=== PATIENT | male | born 1955 | race Hispanic/Latino ===

== ENCOUNTER 2021-11-08 17:38 | Emergency (ER) | payer BC ==
[2021-11-08] MEDS ORDERED: ONDANSETRON 4 MG/2 ML VIAL ONE (18:50)
[2021-11-08 18:57] LABS: Absolute Lymphocytes (CBC) 1.9 K/uL (0.7-4.9); Hematocrit 45.8 % (39.6-49.0); MPV 7.6 fL (7.6-11.3); RBC Red Blood Cell Count 5.21 M/uL (4.33-5.43)
[2021-11-08 19:17] LABS: Albumin 3.5 g/dL (3.4-5.0); Bilirubin Total 0.4 mg/dL (0.2-1.0); Protein, Total 6.8 g/dL (6.4-8.2)
--- NOTE | 2021-11-08 19:22 | RAD REPORT ---
EXAM DESCRIPTION: CT - Stone Protocol - 11/08/2021 6:56 pm CLINICAL HISTORY: right flank pain COMPARISON: <Comparisons> TECHNIQUE: Axial 3 mm thick images were obtained without oral or IV contrast. The [id number] span s the entirety of the system including uppermost abdomen and lung bases. All CT scans are performed using dose optimization technique as appropriate and may include automated exposure control or mA/KV adjustment according to patient size. FINDINGS: No hydronephrosis is present and no obstructing ureteral calculi. 1-2 mm sized calculi are seen lower pole right kidney. No suspicious renal masses. Isodense masses and pyelonephritis are not excluded on a stone protocol CT scan. No significant adrenal finding. No urinary bladder suspicious finding. Imaged portions of the liver, spleen and pancreas show no suspicious findings on non-contrast imaging . No gallbladder or biliary tree abnormality identified. No suspicious bowel findings. No mass or bulky lymphadenopathy. Fat extends into the left inguinal canal. Periumbilical fat only he rnia present. No free air, free fluid or inflammatory stranding. No significant bony abnormality. IMPRESSION: No hydronephrosis, obstructing calculus or acute finding identifiable. Isodense masses and pyelonephritis are not excluded on stone protocol technique.
[2021-11-08] MEDS ORDERED: FENTANYL CITR 100 MCG/2 ML ONE (19:52)
[2021-11-08] MEDS ORDERED: KETOROLAC 30 MG/ML INJ ONE (20:12)
[2021-11-08] MEDS ORDERED: LIDOCAINE 4% PATCH ONE (20:12)
--- NOTE | 2021-11-08 20:12 | EDPHYS ---
Physician Documentation [facility] Name: John Parra Age: 66 yrs Sex: Male : 1955 Arrival Date: 11/08/2021 Time: 17:40 Bed 10 Private MD: ED Physician Froy Jackson HPI: 11/08 18:30 This 66 yrs old Male presents to ER via Ambulatory with complaints of Flank cp Pain. 18:30 The patient complains of pain in the right flank. The pain does not radiate. Onset: The cp symptoms/episode began/occurred 2 day(s) ago. Modifying factors: the symptoms are aggravated by movement, palpation/percussion. Associated signs and symptoms: The patient has no apparent associated signs or symptoms. Severity of pain: in the emergency department the pain is unchanged despite home interventions. Historical: - Allergies: 18:04 No Known Allergies; aa5 - PMHx: 18:04 Hypertensive disorder; Diabetes mellitus; thyroid problems; aa5 - PSHx: 18:04 None; aa5 - Immunization history:: Adult Immunizations unknown. - Social history:: Smoking status: Patient reports the use of cigarette tobacco products, smokes one-half pack cigarettes per day. ROS: 18:35 Constitutional: Negative for body aches, chills, fever, poor PO intake. cp 18:35 Eyes: Negative for injury, pain, redness, and discharge. cp 18:35 ENT: Negative for drainage from ear(s), ear pain, sore throat, difficulty swallowing, difficulty handling secretions. 18:35 Cardiovascular: Negative for chest pain, edema, palpitations. 18:35 Respiratory: Negative for cough, shortness of breath, wheezing. 18:35 Abdomen/GI: Negative for vomiting, diarrhea, constipation. 18:35 Back: Positive for flank pain, on the right, Negative for injury or acute deformity, decreased range of motion. 18:35 : Negative for urinary symptoms, testicular pain 18:35 Skin: Negative for cellulitis, rash. 18:35 Neuro: Negative for altered mental status, headache, weakness. 18:35 All other systems are negative. Exam: 18:40 Constitutional: The patient appears in no acute distress, alert, awake, cp non-diaphoretic, non-toxic, well developed, well nourished. 18:40 Head/Face: Normocephalic, atraumatic. cp 18:40 Eyes: Periorbital structures: appear normal, Conjunctiva: normal, no exudate, no injection, Sclera: no appreciated abnormality, Lids and lashes: appear normal, bilaterally. 18:40 ENT: External ear(s): are unremarkable, Nose: is normal, Mouth: Lips: moist, Oral mucosa: moist, Posterior pharynx: Airway: no evidence of obstruction, patent. 18:40 Neck: ROM/movement: is normal, is supple, without pain, no range of motions limitations, no nuchal rigidity. 18:40 Chest/axilla: Inspection: normal, Palpation: crepitus, is not appreciated, tenderness, that is moderate, of the right lower lateral chest. 18:40 Cardiovascular: Rate: normal, Edema: is not appreciated, JVD: is not appreciated. 18:40 Respiratory: the patient does not display signs of respiratory distress, Respirations: normal, no use of accessory muscles, no retractions, labored breathing, is not present, Breath sounds: are clear throughout, no decreased breath sounds, no stridor, no wheezing. 18:40 Abdomen/GI: Inspection: obese Bowel sounds: active, all quadrants, Palpation: abdomen is soft and non-tender, in all quadrants. 18:40 Back: CVA tenderness, is absent, vertebral tenderness, is not appreciated. 18:40 Skin: cellulitis, is not appreciated, no rash present. 18:40 Neuro: Orientation: to person, place \T\ time. Mentation: is normal, Motor: moves all fours, strength is normal, Sensation: is normal. Vital Signs: 18:05 BP 154 / 92; Pulse 58; Resp 16 S; Temp 97.8(TE); Pulse Ox 100% on R/A; aa5 19:39 BP 136 / 90; Pulse 53; Resp 18; Pulse Ox 99% on R/A; Pain 8/10; ld1 20:20 BP 132 / 89; Pulse 55; Resp 18; Pulse Ox 98% on R/A; Pain 4/10; ld1 MDM: 18:18 Patient medically screened. cp 20:07 ED course: Patient reports similar pain in the past when diagnosed with shingles. Would cp like to start antivirals. 20:12 Data reviewed: vital signs, nurses notes, lab test result(s), radiologic studies, CT cp scan. 20:12 Counseling: I had a detailed discussion with the patient and/or guardian regarding: the cp historical points, exam findings, and any diagnostic results supporting the discharge/admit diagnosis, lab results, radiology results, the need for outpatient follow up, a family practitioner, to return to the emergency department if symptoms worsen or persist or if there are any questions or concerns that arise at home. Response to treatment: the patient's symptoms have mildly improved after treatment, and as a result, I will discharge patient. 11/08 18:23 Order name: CBC with Diff; Complete Time: 19:56 11/08 19:56 Interpretation: Reviewed. 11/08 18:23 Order name: CMP; Complete Time: 19:56 cp 11/08 19:56 Interpretation: Normal except: CL 108; GLUC 147. 11/08 18:23 Order name: Lipase; Complete Time: 19:56 11/08 18:23 Order name: Urine Microscopic Only 11/08 18:23 Order name: CT Stone Protocol; Complete Time: 19:56 11/08 19:57 Interpretation: Report reviewed. 11/08 20:23 Order name: Urine Dipstick-Ancillary EDCT 11/08 18:23 Order name: IV Saline Lock; Complete Time: 18:52 cp 11/08 18:23 Order name: Labs collected and sent; Complete Time: 18:52 11/08 18:23 Order name: Urine Dipstick-Ancillary (obtain specimen); Complete Time: 20:25 cp Administered Medications: 18:52 Not Given (Patient Refused): Zofran (Ondansetron) 4 mg IVP once; over 2 minutes kb3 19:35 CANCELLED (Physician Discretion): Ketorolac 15 mg IVP once cp 19:47 Drug: fentaNYL (PF) 25 mcg Route: IVP; Site: right antecubital; ld1 19:47 Follow up: Response: No adverse reaction ld1 20:19 Drug: Lidoderm Patch 5 % (700 mg/patch) 1 patches Route: Topical; Site: affected area; ld1 20:19 Follow up: Response: No adverse reaction ld1 20:19 Follow up: Response: No adverse reaction ld1 20:19 Drug: Ketorolac 15 mg Route: IVP; Site: right antecubital; ld1 20:19 Follow up: Response: No adverse reaction ld1 Disposition Summary: 11/08/21 20:12 Discharge Ordered Location: Home cp Problem: new cp Symptoms: have improved cp Condition: Stable cp Diagnosis - Chest pain, unspecified - right lower lateral chest cp Followup: cp - With: Private Physician - When: 2 - 3 days - Reason: Recheck today's complaints Discharge Instructions: - Discharge Summary Sheet cp - Musculoskeletal Pain cp Forms: - Medication Reconciliation Form cp - Thank You Letter cp - Antibiotic Education cp - Prescription Opioid Use cp Prescriptions: - capsaicin 0.075 % Topical cream - apply 1 application by TOPICAL route 4 times per day; 45 gram; Refills: 0, cp Product Selection Permitted - Cyclobenzaprine 10 mg Oral Tablet - take 1 tablet by ORAL route every 8 hours As needed; 20 tablet; Refills: 0, cp Product Selection Permitted - Acyclovir 800 mg Oral Tablet - take 1 tablet by ORAL route 5 times per day for 10 days; 50 tablet; Refills: 0, cp Product Selection Permitted - Diclofenac Sodium 75 mg Oral tablet,delayed release (DR/EC) - take 1 tablet by ORAL route 2 times per day; 20 tablet; Refills: 0, Product cp Selection Permitted Addendum: 11/10/2021 23:59 Co-signature as Attending Physician, Froy Jackson MD I was immediately available on-site r n in the Emergency Department for consultation in the care of the patient.. Signatures: Dispatcher [employer] EDFroy Mir MD MD rn Calderon, Audri, RN RN aa5 Ravi Sotelo PA PA cp Caryl Mena RN RN ld1 Linda Doshi RN kb3 Corrections: (The following items were deleted from the chart) 11/08 19:35 19:35 Ketorolac 15 mg IVP once ordered. cp cp
--- NOTE | 2021-11-08 20:12 | ER ---
Nurse's Notes [facility] Name: John Parra Age: 66 yrs Sex: Male : 1955 Arrival Date: 11/08/2021 Time: 17:40 Bed 10 Private MD: Diagnosis: Chest pain, unspecified-right lower lateral chest Presentation: 11/08 18:05 Chief complaint: Patient states: right flank pain x 1 week ago. Denies aa5 nausea/vomiting/diarrhea, denies urinary symptoms. Coronavirus screen: At this time, the client does not indicate any symptoms associated with coronavirus-19. Ebola Screen: Patient denies travel to an Ebola-affected area in the 21 days before illness onset. Initial Sepsis Screen: Does the patient meet any 2 criteria? No. Patient's initial sepsis screen is negative. Does the patient have a suspected source of infection? No. Patient's initial sepsis screen is negative. Risk Assessment: Do you want to hurt yourself or someone else? Patient reports no desire to harm self or others. Onset of symptoms was October 2021. 18:05 Method Of Arrival: Ambulatory aa5 18:05 Acuity: DIONISIO 3 aa5 Historical: - Allergies: 18:04 No Known Allergies; aa5 - PMHx: 18:04 Hypertensive disorder; Diabetes mellitus; thyroid problems; aa5 - PSHx: 18:04 None; aa5 - Immunization history:: Adult Immunizations unknown. - Social history:: Smoking status: Patient reports the use of cigarette tobacco products, smokes one-half pack cigarettes per day. Screenin:39 Abuse screen: Denies threats or abuse. Denies injuries from another. Nutritional ld1 screening: No deficits noted. Tuberculosis screening: No symptoms or risk factors identified. Fall Risk None identified. Assessment: 19:39 General: Appears in no apparent distress. uncomfortable, Behavior is calm, cooperative, ld1 appropriate for age. Pain: Complains of pain in anterior aspect of right lateral abdomen Pain does not radiate. Pain currently is 8 out of 10 on a pain scale. Quality of pain is described as throbbing, Pain began suddenly. Neuro: Level of Consciousness is awake, alert, obeys commands, Oriented to person, place, time, situation. Cardiovascular: Capillary refill < 3 seconds Patient's skin is warm and dry. Respiratory: Airway is patent Respiratory effort is even, unlabored. GI: Abdomen is flat, non-distended. : No signs and/or symptoms were reported regarding the genitourinary system. EENT: No signs and/or symptoms were reported regarding the EENT system. Derm: No signs and/or symptoms reported regarding the dermatologic system. Musculoskeletal: No signs and/or symptoms reported regarding the musculoskeletal system. 20:20 Reassessment: Patient appears in no apparent distress at this time. Patient and/or ld1 family updated on plan of care and expected duration. Pain level reassessed. Vital Signs: 18:05 BP 154 / 92; Pulse 58; Resp 16 S; Temp 97.8(TE); Pulse Ox 100% on R/A; aa5 19:39 BP 136 / 90; Pulse 53; Resp 18; Pulse Ox 99% on R/A; Pain 8/10; ld1 20:20 BP 132 / 89; Pulse 55; Resp 18; Pulse Ox 98% on R/A; Pain 4/10; ld1 ED Course: 17:40 Patient arrived in ED. am2 17:42 Ravi Sotelo PA is PHCP. cp 17:42 Froy Jackson MD is Attending Physician. cp 18:03 Arm band placed on. aa5 18:06 Triage completed. aa5 18:30 Linda Doshi, RN is Primary Nurse. kb3 18:[address] kb3 18:52 Inserted saline lock: 20 gauge in right antecubital area, using aseptic technique. kb3 Blood collected. 18:58 CT Stone Protocol In Process Unspecified. EDMS 19:39 Patient has correct armband on for positive identification. Placed in gown. Bed in low ld1 position. Call light in reach. Side rails up X2. traffic monitor specialist on. Pulse ox on. NIBP on. Door closed. Noise minimized. Warm blanket given. 19:39 No provider procedures requiring assistance completed. ld1 Administered Medications: 18:52 Not Given (Patient Refused): Zofran (Ondansetron) 4 mg IVP once; over 2 minutes kb3 19:35 CANCELLED (Physician Discretion): Ketorolac 15 mg IVP once cp 19:47 Drug: fentaNYL (PF) 25 mcg Route: IVP; Site: right antecubital; ld1 19:47 Follow up: Response: No adverse reaction ld1 20:19 Drug: Lidoderm Patch 5 % (700 mg/patch) 1 patches Route: Topical; Site: affected area; ld1 20:19 Follow up: Response: No adverse reaction ld1 20:19 Follow up: Response: No adverse reaction ld1 20:19 Drug: Ketorolac 15 mg Route: IVP; Site: right antecubital; ld1 20:19 Follow up: Response: No adverse reaction ld1 Medication: 19:39 VIS not applicable for this client. ld1 Outcome: 20:12 Discharge ordered by MD. ochoa 20:20 Condition: stable ld1 20:59 Patient left the ED. mw2 Signatures: Dispatcher [employer] EDMS Sandra Servin RN RN aa5 Ravi Sotelo PA PA cp Moreno, Amanda am2 Son Diana mw2 Caryl Mena RN RN ld1 Linda Doshi RN RN kb3
[2021-11-08 20:22] LABS: Urine Blood Negative (Negative); Urine Glucose Negative (Negative); Urine Protein Negative (Negative); Urine Specific Gravity >=1.030 (1.005-1.030)
[2021-11-08 20:44] LABS: Urine Bacteria <20 /HPF (<20); Urine RBC <5 /HPF (None Seen)
[2021-11-08 22:08] VITALS: TEMP 97.8
[2021-11-08 22:20] VITALS: BP 132/89; O2SAT 98
== END 2021-11-08 20:59 | disposition home or self-care (01) ==
LOC: ER 17:38
DX: R07.89 Other chest pain (principal); E11.9 Type 2 diabetes mellitus without complications; I10 Essential (primary) hypertension; F17.210 Nicotine dependence, cigarettes, uncomplicated
CPT/HCPCS: 85025; 36415; 83690; 80053; 76377; 74176; J3010; J2001; J2405; 81003; 81015; 96374; 96375; 99285

== ENCOUNTER 2023-01-06 08:37 | Day surgery (SDC) | payer BC, OTHER ==
[2023-01-02 13:13] LABS: Potassium 3.8 mEq/L (3.5-5.1)
--- NOTE | 2023-01-03 11:57 | EKG ---
Test Date: 2023-01-02 Test Time: 12:41:22 Harp Repairer: JOHNATHON MEASUREMENT RESULTS: Intervals: Rate: 60 TX: 182 QRSD: 118 QT: 388 QTc: 388 [place]: P: 44 TX: 182 QRS: -30 T: 51 INTERPRETIVE STATEMENTS: Normal sinus rhythm Left axis deviation Nonspecific intraventricular conduction delay Abnormal ECG Compared to ECG 12/07/2004 13:58:00 Left-axis deviation now present Intraventricular conduction delay now present Electronically Signed On 01-03-23 11:54:21 CDT by Dharmesh Haider
[2023-01-06] MEDS ORDERED: OXYMETAZOLINE HCL 0.05% 15ML NAS ONE ×2 (09:01→11:30)
[2023-01-06] MEDS ORDERED: NA CHLORIDE 0.9% 1,000 ML ONE (09:01)
[2023-01-06] MEDS ORDERED: FENTANYL CITR 100 MCG/2 ML ONE (10:44)
[2023-01-06] MEDS ORDERED: MIDAZOLAM HCL 2 MG/2 ML INJ ONE (10:44)
[2023-01-06] MEDS ORDERED: propofoL 200 MG/20 ML VIAL IV ONE (10:44)
[2023-01-06] MEDS ORDERED: LIDOCAINE 2% MPF 5 ML VIAL ONE (10:45)
[2023-01-06] MEDS ORDERED: ONDANSETRON 4 MG/2 ML VIAL ONE (10:45)
[2023-01-06] MEDS ORDERED: OFLOXACIN OPH 0.3%-5 ML BTL ONE (11:30)
--- NOTE | 2023-01-06 12:09 | P.OP ---
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 Cerumen was removed using a wire loop. The eardrum was examined and was very mildly retracted with a serous, light bre appearing middle ear fluid. A radial incision was made in the anterior-inferior quadrant and serous fluid was suctioned from the middle ear space. An alligator was used to position a Paparella type I tube across the incision. Bleeding was minimal The head of bed was turned 90 degrees. The 0 degree endoscope was used to perform a nasopharyngoscopy and nasal endoscopy. The nasal mucosa was somewhat pale and edematous with clear mucoid fluid and cobblestoning of the nasal mucosa. The nasopharynx was free from any significant ulcer or abnormal ap pearing tissue. There was a minimal amount of adenoid tissue and the nasopharynx in general had edematous appearing mucosa with complete occlusion of the right eustachian tube. The left eustachian tube appeared patent. Photodocumentation was obtained. The Acclarent balloon was passed under 30 degree rigid endoscopic guidance through the right nasal cavity. The tip was positioned at the superior aspect of the right eustachian tube opening and the balloon was carefully advanced into the eustachian tube. These eustachian tube was somewhat shortened and the balloon could only be advanced approximately 70% into the lumen. The balloon was then slowly inflated to 2 berta. There was no significant watermelon, bleeding, or other immediate complications noted and the pressure was increased to 8 berta of pressure. This was held for a total of 2 minutes. The balloon was then deflated and the balloon carefully withdrawn. There was very scant blood at the eustachian tube opening but no evidence of significant mucosal injury or other bleeding. The procedure was concluded and the patient was returned to care of anesthesia for awakening extubation in the operating room which proceeded without difficulty. Patient was brought to the recovery room in stable condition. Complications: None Implants: Paparella type I, right Fluids & blood products: See anesthesia record Transferred to: Recovery Room Condition: Good
[2023-01-06 13:28] VITALS: BP 113/67; TEMP 97.8; O2SAT 93
== END 2023-01-06 13:30 | disposition home or self-care (01) ==
LOC: OR 08:37
PROVIDERS: ATTEND Otolaryngology
PROC: 097F8ZZ Dilation of Right Eustachian Tube, Via Natural or Artificial Opening Endoscopic (ICD-10-PCS; 2023-01-06)
PROC: 099570Z Drainage of Right Middle Ear with Drainage Device, Via Natural or Artificial Opening (ICD-10-PCS; principal; 2023-01-06 09:45)
DX: H65.21 Chronic serous otitis media, right ear (principal); H90.A31 Mixed conductive and sensorineural hearing loss, unilateral, right ear with restricted hearing on the contralateral side; H68.021 Chronic Eustachian salpingitis, right ear; J31.0 Chronic rhinitis; E66.3 Overweight; Z72.0 Tobacco use
CPT/HCPCS: 93005; 80048; 36415; 82947; 69436; 69705; J2704; J2001; J2250; J3010; J2405; J7030

== ENCOUNTER 2024-10-22 12:05 | Emergency (ER) | payer MEDICAID ==
--- NOTE | 2024-10-22 14:35 | RAD REPORT ---
EXAMINATION: ONE VIEW CHEST XR CLINICAL INDICATION: Male, 69 years old.,CHEST PAIN TECHNIQUE: Frontal chest projection is submitted. Examination is limited by patient positioning and t echnique. COMPARISON: 10/21/2021 CT chest FINDINGS: The lungs are well inflated and clear. No pneumothorax or sizable effusion. The heart is normal in s ize. Mediastinal contours are unremarkable. IMPRESSION: No acute intrathoracic abnormalities.
--- NOTE | 2024-10-22 14:37 | RAD REPORT ---
EXAM: CT Head Brain Wo Cont HISTORY: DIZZINESS COMPARISON: None TECHNIQUE: Multiple contiguous axial images were obtained for a CT of the brain without contrast. Sag ittal and coronal reformats were performed. One or more of the following dose reduction techniques were used: Automated exposure control, adjus tment of the mA and kV according to patient size, and iterative reconstruction. Unless otherwise specified, incidental findings do not require dedicated imaging follow-up. FINDINGS: No evidence of hydrocephalus, intracranial hemorrhage, or extra-axial fluid collection. The brain is normal in morphology. The calvarium is intact. The visualized paranasal sinuses and mastoid air cells are essentially clear . IMPRESSION: No evidence of acute intracranial abnormality.
[2024-10-22] MEDS ORDERED: NA CHLORIDE 0.9% 1,000 ML ONE (14:42)
[2024-10-22 14:51] LABS: Absolute Lymphocytes (CBC) 1.8 K/uL (0.7-4.9); Hematocrit 44.3 % (39.6-49.0); Hemoglobin 14.8 g/dL (13.6-17.9); MCH 29.0 pg (27.0-35.0); MCHC 33.3 g/dL (32.0-36.0); MCV 87.0 fL (80-100); MPV 7.5 fL (7.6-11.3); Nucleated RBC Absolute Count 0.0 (0-0); Nucleated Red Blood Cells % 0.0 % (0-0); RBC Red Blood Cell Count 5.10 M/uL (4.33-5.43); White Blood Count 6.40 thou/uL (4.3-10.9)
[2024-10-22 14:59] LABS: PT Prothrombin Time 11.9 SECONDS (10-13.0); PTT, Activated Partial Thromb 33.0 SECONDS (27.2-37.4); Protime INR 1.05
[2024-10-22 15:08] LABS: ALT/SGPT 37 U/L (16-61); AST/SGOT 14 U/L (15-37); Albumin 3.6 g/dL (3.4-5.0); Albumin/Globulin Ratio 1.0 (1.1-1.8); Alkaline Phosphatase 94 U/L (45-117); Anion Gap 7.7 mEq/L (5.0-15.0); BUN Blood Urea Nitrogen 19 mg/dL (7-18); Globulin 3.6 g/dL (2.3-3.5); Glucose Level 173 mg/dL (74-106); Magnesium 2.0 mg/dL (1.6-2.4); Potassium 3.7 mEq/L (3.5-5.1); Troponin High Sensitivity 4.3 pg/mL (<58.9)
[2024-10-22 15:09] LABS: Bilirubin Indirect, Calculated 0.3 mg/dL (0.2-0.8)
[2024-10-22] MEDS ORDERED: MECLIZINE HCL 12.5 MG TAB ONE ×2 (16:14→16:18)
--- NOTE | 2024-10-22 16:59 | EDPHYS ---
Physician Documentation [facility] Name: John Parra Age: 69 yrs Sex: Male : 1955 Arrival Date: 10/22/2024 Time: 12:05 Bed 24 Private MD: ED Physician Justine Bradley HPI: 10/22 16:26 This 69 yrs old Male presents to ER via Wheelchair with complaints of sb4 dizziness. 16:26 Patient states that he was playing with his granddaughter this morning, brushing got sb4 very dizzy and nauseated. He states he felt like he was going to pass out, but was able to sit himself down. He vomited shortly after. He almost called an ambulance but his arrived shortly after to bring him to the ED. He states that his symptoms have somewhat improved but are still there. He denies any chest pain or shortness of breath. States that he feels dizzy when he moves his head certain directions or gets up too quickly. Historical: - Allergies: 12:55 No Known Allergies; hb - PMHx: 12:55 diabetes mellitus; Hypertensive disorder; thyroid problems; hb ROS: 16:26 Constitutional: Negative for fever, chills, and weight loss, sb4 16:26 Abdomen/GI: Positive for nausea and vomiting, 16:26 Neuro: Positive for dizziness, 16:26 All other systems are negative, Exam: 16:26 Head/Face: Normocephalic, atraumatic. Eyes: Extra-ocular motions intact. Periorbital sb4 areas with no swelling, redness, or edema. ENT: Mucous membranes moist. Cardiovascular: Regular rate and rhythm with a normal S1 and S2. Respiratory: No increased work of breathing, no retractions or nasal flaring. Abdomen/GI: Soft, non-tender, no distension. Skin: Warm, dry with normal turgor. Normal color with no rashes, no lesions, and no evidence of cellulitis. MS/ Extremity: Pulses equal, no cyanosis. Neurovascular intact. Full, normal range of motion. Neuro: Awake and alert, GCS 15, oriented to person, place, time, and situation. Motor strength 5/5 in all extremities. Sensory grossly intact. 16:26 Constitutional: The patient appears alert, awake, obviously ill, uncomfortable, Vital Signs: 12:53 BP 107 / 79; Pulse 64; Resp 16; Temp 97.9; Pulse Ox 96% on R/A; hb 16:44 BP 124 / 78; Pulse 58; Resp 16; Pulse Ox 97% on R/A; jb4 MDM: 12:50 Medical Screening Exam initiated sb4 16:27 Differential diagnosis: Vertigo, hypotension, hypoglycemia, dehydration, electrolyte sb4 abnormality, ACS, cardiac arrhythmia. Historians other than the Patient: Spouse/Significant Other: . Care significantly affected by the following chronic conditions: Diabetes, Hypertension. Counseling: I had a detailed discussion with the patient and/or guardian regarding the historical points, exam findings, and any diagnostic results supporting the discharge/admit diagnosis, lab results, radiology results, the need for outpatient follow up, for definitive care, to return to the emergency department if symptoms worsen or persist or if there are any questions or concerns that arise at home. 16:58 Data reviewed: vital signs, nurses notes, lab test result(s), EKG, radiologic studies, sb4 and as a result, I will discharge patient. 10/22 13:01 Order name: Basic Metabolic Panel; Complete Time: 15:25 sb4 10/22 13:01 Order name: CBC with Diff; Complete Time: 15:25 sb4 10/22 13:01 Order name: Hepatic Function; Complete Time: 15:25 sb4 10/22 13:01 Order name: Magnesium; Complete Time: 15:25 sb4 10/22 13:01 Order name: Protime (+inr); Complete Time: 15:00 sb4 10/22 13:01 Order name: Ptt, Activated; Complete Time: 15:00 sb4 10/22 13:01 Order name: Troponin High Sensitivity; Complete Time: 15:25 sb4 10/22 13:11 Order name: Glucose, Ancillary Testing; Complete Time: 13:13 EDMS 10/22 15:41 Order name: Troponin High Sensitivity; Complete Time: 16:58 sb4 10/22 13:01 Order name: CT Head Brain wo Cont; Complete Time: 14:45 sb4 10/22 13:01 Order name: Chest Single View XRAY; Complete Time: 14:45 sb4 10/22 13:01 Order name: Cardiac monitoring; Complete Time: 16:41 sb4 10/22 13:01 Order name: EKG - Nurse/Tech; Complete Time: 14:50 sb4 10/22 13:01 Order name: IV Saline Lock; Complete Time: 14:28 sb4 08 13:01 Order name: Labs collected and sent; Complete Time: 14:28 sb4 08 13:01 Order name: O2 Per Protocol; Complete Time: 16:42 sb4 10/22 13:01 Order name: O2 Sat Monitoring; Complete Time: 16:42 sb4 08 15:41 Order name: Misc. Order: ambulate; Complete Time: 15:45 sb4 EC:50 Rate is 55 beats/min. Rhythm is regular, Sinus bradycardia. MO interval is normal at sb4 194 msec. QRS interval is normal at 104 msec. QT interval is normal at 404 msec. No Q waves. T waves are Normal. No ST changes noted. Clinical impression: No evidence of ischemia. Interpreted by me. Reviewed by me. Administered Medications: 14:50 Drug: NS 0.9% IV 1000 ml IV at 1000 ml once; to be given as a bolus over 60 minutes ll1 Route: IV; Rate: 1000 ml; Site: right hand; 16:00 Follow up: Response: No adverse reaction; IV Status: Completed infusion; IV Intake: jb4 1000ml 16:20 Drug: Meclizine PO 50 mg PO once Route: PO; jb4 17:46 Follow up: Response: No adverse reaction; Marked relief of symptoms jb4 Disposition Summary: 10/22/24 16:59 Discharge Ordered Notes: Location: Home sb4 Problem: new sb4 Symptoms: have improved sb4 Condition: Stable sb4 Diagnosis - Dizziness and giddiness sb4 Followup: sb4 - With: Emergency Department - When: As needed - Reason: Trouble breathing, Worsening of condition Followup: sb4 - With: Kristine Tran MD - When: As needed - Reason: Further diagnostic work-up, Recheck today's complaints, Re-evaluation by your physician Discharge Instructions: - Discharge Summary Sheet sb4 - Vertigo, [id number] sb4 - Dizziness, [id number] sb4 Forms: - Patient Portal Instructions sb4 - Leadership Thank You Letter sb4 Prescriptions: - Meclizine 25 mg Oral Tablet - take 1 tablet ORAL route every 8 hours As needed; 30 tablet; Refills: 0, sb4 Product Selection Permitted Signatures: Dispatcher [employer] EDMS Britney Galloway, RN RN Marco Antonio Bejarano, RN RN jb4 La Garcia, RN RN ll1 Veronika Curran PA-C PAJhon sb4 Corrections: (The following items were deleted from the chart) 13:02 13:02 BASIC METABOLIC PANEL+C.LAB.BRZ ordered. EDMS EDMS 13:02 13:02 CBC+H.LAB.BRZ ordered. EDMS EDMS 13:02 13:02 HEPATIC FUNCTION+C.LAB.BRZ ordered. EDMS EDMS 13: 13:02 MAGNESIUM+C.LAB.BRZ ordered. EDMS EDMS 13:02 13:02 PROTIME (+INR)+COAG.LAB.BRZ ordered. EDMS EDMS 13:02 13:02 PTT, ACTIVATED+COAG.LAB.BRZ ordered. EDMS EDMS 13:02 13:02 Troponin High Sensitivity+C.LAB.BRZ ordered. EDMS EDMS 13:02 13:02 Head Brain Wo Cont+CT.RAD.BRZ ordered. EDMS EDMS 13:02 13:02 Chest Single View+RAD.RAD.BRZ ordered. EDMS EDMS 16:54 13:01 Orthostatics ordered. sb4 jb4
--- NOTE | 2024-10-22 16:59 | ER ---
Nurse's Notes [facility] Name: John Parra Age: 69 yrs Sex: Male : 1955 Arrival Date: 10/22/2024 Time: 12:05 Bed 24 Private MD: Diagnosis: Dizziness and giddiness Presentation: 10/22 12:53 Coronavirus screen: At this time, the client does not indicate any symptoms associated hb with coronavirus-19. Ebola Screen: No symptoms or risks identified at this time. Initial Sepsis Screen: Does the patient meet any 2 criteria? No. Patient's initial sepsis screen is negative. Does the patient have a suspected source of infection? No. Patient's initial sepsis screen is negative. Risk Assessment: Do you want to hurt yourself or someone else? Patient reports no desire to harm self or others. 12:53 Method Of Arrival: Wheelchair hb 13:00 Chief complaint: Near syncopal episode followed by N/V that started this morning. Onset hb of symptoms was October 22, 2024. 13:00 Acuity: DIONISIO 3 hb Historical: - Allergies: 12:55 No Known Allergies; hb - PMHx: 12:55 diabetes mellitus; Hypertensive disorder; thyroid problems; hb Screenin:40 [facility] ED Fall Risk Assessment (Adult) History of falling in the last 3 months, jb4 including since admission No falls in past 3 months (0 pts) Confusion or Disorientation No (0 pts) Intoxicated or Sedated No (0 pts) Impaired Gait No (0 pts) Mobility Assist Device Used No (0 pt) Altered Elimination No (0 pt) Score/Fall Risk Level 0 - 2 = Low Risk Oriented to surroundings, Maintained a safe environment. Abuse screen: Denies threats or abuse. Nutritional screening: No deficits noted. Tuberculosis screening: No symptoms or risk factors identified. Assessment: 14:39 Reassessment: Patient and/or family updated on plan of care and expected duration. Pain ll1 level reassessed. 15:40 General: Appears in no apparent distress. comfortable, Behavior is calm, cooperative, jb4 appropriate for age. Pain: Denies pain. Neuro: Level of Consciousness is awake, alert, obeys commands, Oriented to person, place, time, situation, Reports dizziness. Cardiovascular: Patient's skin is warm and dry. Respiratory: Airway is patent Respiratory effort is even, unlabored, Respiratory pattern is regular, symmetrical. GI: Abdomen is round non-distended. Derm: Skin is intact, Skin is pink, warm \T\ dry. Musculoskeletal: Circulation, motion, and sensation intact. Range of motion: intact in all extremities. 16:45 Reassessment: Patient appears in no apparent distress at this time. Patient and/or jb4 family updated on plan of care and expected duration. Pain level reassessed. Patient is alert, oriented x 3, equal unlabored respirations, skin warm/dry/pink. Patient states feeling better. Patient states symptoms have improved. Vital Signs: 12:53 BP 107 / 79; Pulse 64; Resp 16; Temp 97.9; Pulse Ox 96% on R/A; hb 16:44 BP 124 / 78; Pulse 58; Resp 16; Pulse Ox 97% on R/A; jb4 ED Course: 12:49 Patient arrived in ED. al6 12:50 Veronika Curran PA-C is PHCP. sb4 12:50 Justine Bradley MD is Attending Physician. sb4 12:55 Arm band placed on. hb 13:01 Triage completed. hb 13:11 CT Head Brain wo Cont In Process Unspecified. EDMS 13:18 Chest Single View XRAY In Process Unspecified. EDMS 14:38 Initial lab(s) drawn, by me, sent to lab. Inserted saline lock: 22 gauge in right hand, ll1 using aseptic technique. Blood collected. Flushed with 10 mL NS. 14:50 Provided Education on: ER procedures and process. Warm blanket given. ll1 15:40 Patient has correct armband on for positive identification. Bed in low position. Call jb4 light in reach. Side rails up X 1. 16:44 Marco Antonio Bejarano, RN is Primary Nurse. jb4 16:58 Kristine Tran MD is Referral Physician. sb4 17:46 No provider procedures requiring assistance completed. IV discontinued, intact, jb4 bleeding controlled, No redness/swelling at site. Pressure dressing applied. Administered Medications: 14:50 Drug: NS 0.9% IV 1000 ml IV at 1000 ml once; to be given as a bolus over 60 minutes ll1 Route: IV; Rate: 1000 ml; Site: right hand; 16:00 Follow up: Response: No adverse reaction; IV Status: Completed infusion; IV Intake: jb4 1000ml 16:20 Drug: Meclizine PO 50 mg PO once Route: PO; jb4 17:46 Follow up: Response: No adverse reaction; Marked relief of symptoms jb4 Medication: 15:40 VIS not applicable for this client. jb4 Intake: 16:00 IV: 1000ml; Total: 1000ml. jb4 Outcome: 16:59 Discharge ordered by . sb4 17:46 Discharged to home ambulatory, with family, jb4 17:46 Condition: stable 17:46 Discharge instructions given to patient, Instructed on discharge instructions, follow up and referral plans. no drinking with medication, no driving heavy equipment, medication usage, Demonstrated understanding of instructions, follow-up care, medications, Prescriptions given X 1, 17:47 Patient left the ED. jb4 Signatures: Dispatcher [employer] EDBritney Miles RN RN Marco Antonio Bejarano RN RN jb4 La Garcia RN RN ll1 Veronika Curran PA-C PAJhon [email or web address] Italia Patel
[2024-10-22 17:59] VITALS: TEMP 97.9
[2024-10-22 18:02] VITALS: BP 124/78; O2SAT 97
== END 2024-10-22 17:47 | disposition home or self-care (01) ==
LOC: ER 12:05
DX: R42 Dizziness and giddiness (principal); R11.2 Nausea with vomiting, unspecified; E11.9 Type 2 diabetes mellitus without complications; I10 Essential (primary) hypertension
CPT/HCPCS: 93005; 85025; 80048; 36415; 83735; 85610; 82947; 80076; 85730; 84484 ×2; 70450; 71045; 96360; 99284; J8597 ×2; J7030